=== PATIENT | female | born 2000 | race Hispanic/Latino ===

== ENCOUNTER 2021-10-14 10:47 | Emergency (ER) | payer OTHER ==
[~2021-10-14] VITALS: Ht 157.5 cm; Wt 49.9 kg
[2021-10-14 10:51] VITALS: BP 118/72
[2021-10-14] MEDS ORDERED: IBUP-1552 PO (13:42)
[2021-10-14] MEDS ORDERED: IBUPROFEN 600 MG TABLET PO ONE (14:00)
== END 2021-10-14 14:00 | disposition home or self-care (01) ==
LOC: EDH 10:47
DX: S93.492A Sprain of other ligament of left ankle, initial encounter (principal); Z88.0 Allergy status to penicillin; Z79.899 Other long term (current) drug therapy; X58.XXXA Exposure to other specified factors, initial encounter; Y93.01 Activity, walking, marching and hiking; Y92.89 Other specified places as the place of occurrence of the external cause; Y99.8 Other external cause status
CPT/HCPCS: 73610